=== PATIENT | male | born 1995 | race Caucasian/White ===

== ENCOUNTER 2018-09-12 06:38 | Day surgery (SDC) | payer OTHER ==
[~2018-09-12] VITALS: Ht 175.3 cm; Wt 100.0 kg
[~2018-09-12 06:38] MED LIST: DIPH25TA19 PO; METH54TA PO; RINGERS SOLUTION,LACTATED 1,000 ML IV ONE; SERT50TA12 PO
[2018-09-12] MEDS ORDERED: KETAMINE HCL 50 MG/ML 10 ML VIAL IVP ONE (06:39)
[2018-09-12] MEDS ORDERED: FentaNYL CITRATE-PF 100 MCG/2 ML VIAL IVP ONE (06:39)
[2018-09-12] MEDS ORDERED: MIDAZOLAM HCL 2 MG/2 ML VIAL IVP ONE (06:39)
[2018-09-12] MEDS ORDERED: AMPICILLIN SODIUM 1 GM/VIAL ONE (07:14)
[2018-09-12] MEDS ORDERED: MIDAZOLAM HCL 5 MG/ML VIAL ONE (07:20)
[2018-09-12] MEDS ORDERED: FentaNYL CITRATE-PF 100 MCG/2 ML VIAL IVP PRN (08:15)
[2018-09-12] MEDS ORDERED: OXYMETAZOLINE HCL 0.05% 15 ML NASAL SPRAY NASAL ONE (08:16)
[2018-09-12] MEDS ORDERED: OXYGEN THERAPY IH SCH (20:00)
[2018-09-12] MEDS ORDERED: PROPOFOL 1% 20 ML VIAL IVP ONE (21:00)
[2018-09-12] MEDS ORDERED: DEXAMETHASONE SOD PHOS 4 MG/ML VIAL IVP ONE (21:00)
[2018-09-12] MEDS ORDERED: ONDANSETRON HCL 4 MG/2 ML VIAL IVP ONE (21:00)
[2018-09-12] MEDS ORDERED: ROCURONIUM BROMIDE 10 MG/ML 5 ML VIAL IVP ONE (21:00)
[2018-09-12] MEDS ORDERED: LIDOCAINE/PF 2% 5 ML VIAL INJ ONE (21:00)
== END 2018-09-12 11:05 | disposition home or self-care (01) ==
LOC: SURGERY 06:38
PROVIDERS: ATTEND Dentist General Practice
DX: K05.30 Chronic periodontitis, unspecified (principal); Z98.890 Other specified postprocedural states
CPT/HCPCS: 41899; 71045; 93005; J0290; J1100; J2250 ×2; J2405; J2704; J3010; J3490 ×3; J7120